=== PATIENT | male | born 1995 | race Caucasian/White ===

== ENCOUNTER → 2025-02-12 | Outpatient (CLI) | payer OTHER ==
--- NOTE | 2025-02-12 21:48 | XR ---
EXAMINATION TYPE: XR lumbar spine 3V DATE OF EXAM: 02/12/2025 10:40 AM COMPARISON: None CLINICAL INDICATION: Male, 30 years old with history of G629 NEUROPATHY; PHH, pain TECHNIQUE: 3 views FINDINGS: 5 lumbar type vertebral bodies. Mild facet spurring in the lower lumbar spine. Vertebral body heights and disc interspaces are preserved. Alignment is maintained. IMPRESSION: No vertebral compression collapse or malalignment. [facility], Workstation: [facility], 02/12/2025 9:45 PM
--- NOTE | 2025-02-12 21:55 | US ---
EXAMINATION TYPE: US thyroid st tissue head/neck DATE OF EXAM: 02/12/2025 COMPARISON: NONE CLINICAL INDICATION: Male, 30 years old with history of E07.9 DISORDER OF THYROID; Pain in right side of neck TECHNIQUE: Grayscale and color Doppler imaging of the thyroid gland. FINDINGS: GLAND SIZE: Right Lobe: 5.7 x 1.6 x 2.0 cm Overall Parenchyma: homogeneous Left Lobe: 5.0 x 1.3 x 1.5 cm Overall Parenchyma: homogeneous Isthmus Thickness: .2 cm NODULES RIGHT: # of nodules measured on right: 0 LEFT: # of nodules measured on left 0: ISTHMUS: # of nodules measured in the isthmus: 0 Bilateral neck scanned, no evidence of lymphadenopathy. IMPRESSION: Borderline thyromegaly. No discrete nodules. [facility], Workstation: [email or web address], 02/12/2025 9:53 PM
== END | disposition home or self-care (01) ==
LOC: RADUSWWP 10:12
PROVIDERS: ATTEND Internal Medicine Geriatric Medicine
DX: E07.9 Disorder of thyroid, unspecified (principal); G62.9 Polyneuropathy, unspecified
CPT/HCPCS: 72100; 76536